=== PATIENT | female | born 1955 | race Caucasian/White ===

== ENCOUNTER → 2016-09-11 | Outpatient (REF) | payer OTHER | LOC: M SFHCWAGY 11:17 | PROVIDERS: ATTEND Nurse Practitioner Women's Health | DX: Z12.4 Encounter for screening for malignant neoplasm of cervix (principal) ==

== ENCOUNTER → 2017-09-09 | Outpatient (REF) | payer OTHER | LOC: M SFHCWAGY 10:10 | DX: Z12.4 Encounter for screening for malignant neoplasm of cervix (principal) ==

== ENCOUNTER → 2018-09-04 | Outpatient (REF) | payer OTHER ==
[2018-09-09 14:11] LABS: HPV HYBRID CAPTURE II Negative (Negative)
== END ==
LOC: M SFHCWAGY 11:28
PROVIDERS: ATTEND Nurse Practitioner Women's Health
DX: Z12.4 Encounter for screening for malignant neoplasm of cervix (principal)
CPT/HCPCS: 87624; G0123

== ENCOUNTER → 2018-10-01 | Outpatient (CLI) | payer MEDICARE, OTHER ==
--- NOTE | 2018-10-06 09:30 | DEXA ---
AP SPINE L1 - L4 1.320 1.0 2.6 LT FEMUR TOTAL 0.865 -1.1 0.1 LT NECK 0.813 -1.6 -0.2 RT FEMUR TOTAL 0.887 -1.0 0.2 RT NECK 0.820 -1.6 -0.1 TOTAL BODY TOTAL OTHER COMMENTS: Normal bone densitometry of the spine. There is low bone density of the hips. The decreased density of the spine does represent a significant change. The decreased density of the left hip does represent a significant change. The decreased density of the right hip does represent a significant change. The density of the spine has decreased 4.7% since the initial exam on 06/02/2001. The spine density has decreased 6.1% since the most recent exam on 02/26/2007. The density of the left hip has decreased 14.6% since the initial exam on 06/02/2001. The density of the left hip has decreased 10.4% since the most recent exam on 02/26/2007. The density of the right hip has decreased 13.0% since the initial exam on 06/02/2001. The density of the right hip has decreased 10.0% since the most recent exam on 02/26/2007. FOLLOW-UP: Recommendation for the next bone density exam: 2 years. KAREL
== END ==
LOC: M WHC 09:53
PROVIDERS: ATTEND Nurse Practitioner Women's Health
DX: Z13.820 Encounter for screening for osteoporosis (principal); Z78.0 Asymptomatic menopausal state; Z82.62 Family history of osteoporosis; Z84.89 Family history of other specified conditions

== ENCOUNTER → 2020-09-12 | Outpatient (REF) | payer MEDICARE, OTHER | LOC: M SFHCWAGY 13:35 | PROVIDERS: ATTEND Nurse Practitioner Women's Health | DX: Z12.4 Encounter for screening for malignant neoplasm of cervix (principal); N95.2 Postmenopausal atrophic vaginitis | CPT/HCPCS: G0101; G0123 ==

== ENCOUNTER → 2020-10-06 | Outpatient (CLI) | payer MEDICARE, OTHER ==
--- NOTE | 2020-10-06 09:59 | DEXAMM ---
INDICATION: M85.80 LOW BONE DENSITY,Z78.0 POSTMENOPAUSAL. COMPARISON: Comparison bone densitometry exam dates are October 01, 2018 and June 02, 2001.. TECHNIQUE: Bone density was measured using dual-energy x-ray absorptionmetry (DEXA). FINDINGS: AP SPINE L1-L4 BMD 1.292 g/cm2 Young Adult T-Score 0.8 Age Matched Z-Score 2.4. LT FEMUR, TOTAL BMD 0.858 g/cm2 Young Adult T-Score -1.2 Age Matched Z-Score 0.1. LT NECK BMD 0.816 g/cm2 Young Adult T-Score -1.6 Age Matched Z-Score -0.1. RT FEMUR, TOTAL BMD 0.865 g/cm2 Young Adult T-Score -1.1 Age Matched Z-Score 0.2. RT NECK BMD 0.801 g/cm2 Young Adult T-Score -1.7 Age Matched Z-Score -0.2. IMPRESSION: There is normal bone density of the spine. There is low bone density of the left hip. There is low bone density of the right hip. The density of the spine has decreased 6.7% since the initial exam on June 02, 2001. The density of the spine decreased 2.1% since most recent exam on October 01, 2018. The density of the left hip has decreased 15.3% since initial exam on June 02, 2001. The density of the left hip has decreased 0.8% since most recent exam on October 01, 2018. The density of the right hip has decreased 15.1% since the initial exam on June 02, 2001. The density of the right hip has decreased 2.5% since the most recent exam on October 01, 2018. FOLLOW-UP: Recommendation for the next bone density exam: 2 years. <Electronically signed by Benjamin Knight > 10/06/20 [id number]
== END ==
LOC: M WHC 08:11
PROVIDERS: ATTEND Nurse Practitioner Women's Health
DX: M81.0 Age-related osteoporosis without current pathological fracture (principal); Z78.0 Asymptomatic menopausal state

== ENCOUNTER → 2022-10-07 | Outpatient (REF) | payer MEDICARE, OTHER | LOC: M SFHCWAGY 09:50 | PROVIDERS: ATTEND Nurse Practitioner Family | DX: Z12.4 Encounter for screening for malignant neoplasm of cervix (principal); N95.2 Postmenopausal atrophic vaginitis | CPT/HCPCS: 87624; G0123 ==

== ENCOUNTER → 2022-10-18 | Outpatient (CLI) | payer MEDICARE, OTHER | LOC: M WHC 14:31 | PROVIDERS: ATTEND Nurse Practitioner Family | DX: Z13.820 Encounter for screening for osteoporosis (principal); M85.851 Other specified disorders of bone density and structure, right thigh; M85.852 Other specified disorders of bone density and structure, left thigh; M85.88 Other specified disorders of bone density and structure, other site ==

== ENCOUNTER → 2024-11-08 | Outpatient (CLI) | payer MEDICARE, OTHER | LOC: M WHC 07:19 | PROVIDERS: ATTEND Nurse Practitioner Family | DX: N95.1 Menopausal and female climacteric states (principal); Z13.820 Encounter for screening for osteoporosis; M85.89 Other specified disorders of bone density and structure, multiple sites ==